=== PATIENT | female | born 1995 | race Caucasian/White ===

== ENCOUNTER → 2021-06-06 14:55 | Observation (INO) ==
[2021-06-06 13:42] LABS: Bilirubin,Urine Negative (Negative); Blood,Urine Negative (Negative); Clarity,Urine Clear (Clear); Color,Urine Colorless (Yellow); Glucose,Urine (UA) Normal (Normal); Ketones,Urine Negative (Negative); Leukocyte Esterase,Urine Negative (Negative); Nitrite,Urine Negative (Negative); PH,Urine 6.5 pH Units (5.0-8.0); Protein,Urine Negative (Neg-Trace); Specific Gravity,Urine 1.005 (1.010-1.025); Urobilinogen,Urine Normal (Normal)
== END | disposition home or self-care (01) ==
LOC: 1NENULAB
PROVIDERS: ADMIT Advanced Practice Midwife; ATTEND Advanced Practice Midwife

== ENCOUNTER 2021-09-14 07:31 | Inpatient (IN) ==
[~2021-09-14 07:31] MED LIST: *HR* Nalbuphine 10 MG/ML AMPUL IV PRN; Famotidine 20 MG/2 ML VIAL IVP PRN; Lidocaine 1% 20 ML MDV INFILT PRN; Metoclopramide 10 MG/2 ML VIAL IVP PRN; Naloxone 0.4 MG/ML INJ IVP PRN; Ondansetron 4 MG/2 ML VIAL IVP PRN; Oxytocin 30 UNIT/503 ML BAG IVC SCH; Ringers Solution, Lactated 1,000 ML IVC SCH
[2021-09-14 08:09] LABS: Basophils % 0.2 %; Eosinophils % 0.4 %; Hematocrit 40.7 % (35.3-44.9); Hemoglobin 13.9 g/dL (11.5-15.4); Immature Granulocytes % 0.4 % (0-4); Lymphocytes # 1.2 K/mcL (0.6-4.6); Lymphocytes % 10.2 %; Mean Corpuscular HGB Conc 34.2 g/dL (31.6-35.5); Mean Corpuscular Hemoglobin 28.1 pg (28.0-33.3); Mean Corpuscular Volume 82.4 fL (83.0-100.0); Mean Platelet Volume 12.4 fL (9.4-12.4); Monocytes # 0.9 K/mcL (0.0-1.3); Monocytes % 7.6 %; Neutrophils # 9.2 K/mcL (1.6-8.9); Platelet Count 206 K/mcL (140-400); Red Blood Count 4.94 M/mcL (3.82-4.97); Red Cell Distribution Width 13.5 % (11.5-14.5); Segmented Neutrophils % 81.2 %; White Blood Count 11.3 K/mcL (4.3-11.1)
[2021-09-14 08:38] LABS: Influenza A PCR Negative (Negative); Influenza B PCR Negative (Negative); Resp. Syncytial Virus PCR Negative (Negative)
[2021-09-14 08:44] LABS: SARS-CoV-2 by PCR (In House) Negative (Negative)
[2021-09-14 09:03] LABS: Amphetamine Screen,Urine Negative ng/mL (Cutoff=1000); Barbiturate Screen,Urine Negative ng/mL (Cutoff=200); Benzodiazepines Screen,Urine Negative ng/mL (Cutoff=200); Cannabinoid Screen,Urine Negative ng/mL (Cutoff = 50); Cocaine Screen,Urine Negative ng/mL (Cutoff= 300); Opiate Screen,Urine Negative ng/mL (Cutoff=300); Phencyclidine Screen,Urine Negative ng/mL (Cutoff=25)
[2021-09-14] MEDS ORDERED: EPHEDrine 50 MG/ML VIAL IVP PRN (13:23)
[2021-09-14] MEDS ORDERED: Epidural Premix (fent/bupiv) 110 ML EP SCH (13:30)
[2021-09-15] MEDS ORDERED: Azithromycin 500 MG in 0.9 % Sodium Chloride 250 ML IVPB PRN (16:56)
[2021-09-15] MEDS ORDERED: Clindamycin 900 MG/50 ML 900 MG/50 ML IV.SOLN IVPB ONE (16:56)
[2021-09-15] MEDS ORDERED: Lidocaine/EPI 1:200k 2% PF 20 ML VIAL ONE (17:41)
[2021-09-15] MEDS ORDERED: Gentamicin 410 MG in 0.9 % Sodium Chloride 100 ML IVPB ONE (17:45)
[2021-09-15] MEDS ORDERED: *HR* Morphine Sulfate/PF 10 MG/10 ML AMPUL ONE (17:57)
[2021-09-15] MEDS ORDERED: Acetaminophen IV 1,000 MG/100 ML BAG IVPB ONE (17:57)
[2021-09-15] MEDS ORDERED: Ondansetron 4 MG/2 ML VIAL ONE (17:57)
[2021-09-15] MEDS ORDERED: Ketorolac 30 MG/ML VIAL ONE (17:58)
[2021-09-15] MEDS ORDERED: Ondansetron 4 MG/2 ML VIAL IVP PRN ×2 (19:54→22:12)
[2021-09-15] MEDS ORDERED: *HR* HYDROmorphone PF 0.5 MG/0.5 ML SYRINGE IVP PRN (19:54)
[2021-09-15] MEDS ORDERED: Promethazine 6.25 MG in Water for inj. (sterile) 20 ML IVPB PRN (19:54)
[2021-09-15] MEDS ORDERED: Oxytocin 30 UNIT/503 ML BAG IVC SCH (22:12)
[2021-09-15] MEDS ORDERED: Metoclopramide 10 MG/2 ML VIAL IVP PRN (22:12)
[2021-09-15] MEDS ORDERED: Rho Immune Globulin 1,500 UNIT SYRINGE IM ONE (22:12)
[2021-09-15] MEDS ORDERED: Simethicone 80 MG TAB.CHEW PO PRN (22:12)
[2021-09-15] MEDS ORDERED: *HR* Enoxaparin 60 MG/0.6 ML SYRINGE SQ SCH (22:30)
[2021-09-16] MEDS: metroNIDAZOLE 500 MG TABLET PO SCH ×4 (00:13→19:32)
[2021-09-16] MEDS: Ibuprofen 600 MG TABLET PO SCH ×4 (00:13→22:00)
[2021-09-16] MEDS: Acetaminophen 325 MG TABLET PO SCH ×4 (00:13→22:00)
[2021-09-16 01:55] VITALS: O2SAT 96
[2021-09-16] MEDS: *HR* OxyCODONE Immed Rel 5 MG TABLET PO PRN ×4 (03:02→22:47)
[2021-09-16] MEDS ORDERED: Lanolin 7 G OINT...G. TP PRN (03:04)
[2021-09-16 04:53] LABS: Basophils % 0.1 %; Eosinophils # 0.1 K/mcL (0.0-0.6); Eosinophils % 0.4 %; Hematocrit 37.4 % (35.3-44.9); Hemoglobin 12.6 g/dL (11.5-15.4); Immature Granulocytes % 0.7 % (0-4); Lymphocytes # 0.8 K/mcL (0.6-4.6); Lymphocytes % 3.8 %; Mean Corpuscular HGB Conc 33.7 g/dL (31.6-35.5); Mean Corpuscular Hemoglobin 28.3 pg (28.0-33.3); Mean Corpuscular Volume 83.9 fL (83.0-100.0); Mean Platelet Volume 11.8 fL (9.4-12.4); Monocytes # 1.1 K/mcL (0.0-1.3); Monocytes % 5.4 %; Neutrophils # 18.1 K/mcL (1.6-8.9); Platelet Count 178 K/mcL (140-400); Red Blood Count 4.46 M/mcL (3.82-4.97); Red Cell Distribution Width 13.9 % (11.5-14.5); Segmented Neutrophils % 89.6 %
[2021-09-16 05:00] LABS: White Blood Count 20.2 K/mcL (4.3-11.1)
[2021-09-16] MEDS: Azithromycin 250 MG TABLET PO SCH (08:10)
[2021-09-16] MEDS: *HR* Enoxaparin 60 MG/0.6 ML SYRINGE SQ SCH ×2 (08:10→19:32)
[2021-09-16] MEDS: Prenatal Vit/FA 1 EACH TABLET PO SCH (08:10)
[2021-09-17] MEDS: Ibuprofen 600 MG TABLET PO SCH ×2 (03:47→10:54)
[2021-09-17] MEDS: Acetaminophen 325 MG TABLET PO SCH ×2 (03:47→10:54)
[2021-09-17 07:12] VITALS: BP 116/79; PULSE 86; TEMP 97.8
[2021-09-17] MEDS: *HR* OxyCODONE Immed Rel 5 MG TABLET PO PRN ×2 (07:13→11:24)
[2021-09-17] MEDS: Azithromycin 250 MG TABLET PO SCH (07:13)
[2021-09-17] MEDS: metroNIDAZOLE 500 MG TABLET PO SCH (07:13)
[2021-09-17] MEDS: Prenatal Vit/FA 1 EACH TABLET PO SCH (07:13)
[2021-09-17] MEDS: *HR* Enoxaparin 60 MG/0.6 ML SYRINGE SQ SCH (08:00)
== END 2021-09-17 12:25 | disposition home or self-care (01) | DRG 788 ==
LOC: 1NENULAB → 1NENUOBS 09-15 22:13
PROVIDERS: ADMIT Advanced Practice Midwife; ATTEND Advanced Practice Midwife